=== PATIENT | male | born 1975 ===

== ENCOUNTER 2019-02-04 11:30 | Emergency (ER) | payer OTHER ==
[2019-02-04 11:43] VITALS: BP 129/82
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
[2019-02-04] MEDS ORDERED: Ibuprofen TAB* 600 MG PO ONE (12:00)
== END 2019-02-04 12:45 | disposition home or self-care (01) ==
LOC: UCEAST 11:30
DX: S30.0XXA Contusion of lower back and pelvis, initial encounter (principal); M54.5 Low back pain; V86.59XA Driver of other special all-terrain or other off-road motor vehicle injured in nontraffic accident, initial encounter; Y93.55 Activity, bike riding; Y92.9 Unspecified place or not applicable
CPT/HCPCS: 72110; 99212; A9270-GY; G0463